=== PATIENT | female | born 1950 | race Caucasian/White ===

== ENCOUNTER → 2023-12-14 14:49 | Outpatient (REF) | payer MEDICARE, BC, SELFPAY | LOC: HWRAD 14:49 | PROVIDERS: ATTENDING PHYSICIAN Physician Assistant Surgical; FAMILY PHYSICIAN Nurse Practitioner Family | DX: M25.512 Pain in left shoulder (principal) | CPT/HCPCS: 73200 ==

== ENCOUNTER 2024-04-08 17:57 | Emergency (ER) | payer MEDICARE, BC, SELFPAY ==
[2024-04-08 17:59] VITALS: BP 144/90
--- NOTE | 2024-04-08 19:26 | ED.MUSCINJ ---
HPI-Injury
General
Chief Complaint: Musculo-Skeletal Complaint
Source: patient, records and spouse
Exam Limitations: none
Time Seen by Provider: 04/08/24 19:12
Nursing documentation reviewed up to this point in time: agreed with
History of Present Illness-Injury
Is this injury a work related problem?: No
Is pt an associate of [facility]/[place]?: No
Initial Injury comments:
73-year-old female left hand pain status post fall 2 days ago cut back her left small finger thinks it broke into her hand, she has had 2 right shoulder surgeries for [place] second by Dr. Martin scheduled to have a left shoulder surgery in the
future, using some tramadol with good pain relief, has some bruising and swelling over her left hand,
Past History
Past History
ED Past Medical History: HTN and Psychiatric (Anxiety/depression)
ED Past Surgical History: Orthopedic and Other (Bilateral breast reduction)
Social History
Tobacco: Non-smoker
Review of Systems
Review of Systems
All Other Systems: Not applicable
Constitutional: Denies fever
Respiratory: Reports no symptoms
Cardiac: Reports no symptoms
ABD/GI: Reports no symptoms
: Reports no symptoms
Musculoskeletal: Reports joint pain
Neurological: Reports no symptoms
Endocrine: Reports no symptoms
Phy Exam
Physical Exam
Physical Exam:
Physical Exam
General: no apparent distress, not acutely ill
Neck: No tongue bite
Lungs: no acute respiratory distress. clear bilaterally
Neuro: alert and oriented. no focal neurological deficits
Skin: no rash
Psychiatric: well kept. interactive and cooperative
Extremities: Mild pain and bruising base of the small finger normal cap refill no pain with range of motion of the left shoulder no tongue bite no posterior neck pain
Injury Course
Orders/Labs/Results
Orders:
Orders
04/08/24 18:02
CR Wrist - Left Min 3 Views Urgent
Comment:
Reason For Exam: injury
04/08/24 18:36
CR Hand - Left Min 3 Views Urgent
Comment:
Reason For Exam: fall, pain
04/08/24 20:13
Tramadol HCl [Ultram] 50 mg PO NOW STA
Procedures
Splint Check
Splint checked by provider?: Yes
Circulation/Movement/Sensation post splint application: brisk cap refill
Splinting/Sling Placement
Left Hand:
Pre-splint extermity exam: neurovascular intact
Type of splint: volar
Splint material: universal
Splint checked by provider?: Yes
Normal distal neurovascular exam?: Yes
MDM/Problems Addressed
Differential Diagnosis Includes:
Fracture contusion dislocation
MDM/Problems Addressed:
Hand injury
Chronic conditions affecting care:
Prior right shoulder surgery
Acute Exacerbation and/or Progression of Chronic Illness:
Prior right shoulder surgery left shoulder arthritis
*Radiology
Radiology exam reviewed: preliminary read by ED provider
*Pulse Oximetry
Patient hypoxic: no
*Critical Care Note
Total Time (30-74mins, 75-104mins- exclusive of procedures): Not Applicable
Update Note
Update Note:
Update x-rays noted question of subtle fracture distal fifth met versus normal will splint for comfort have her follow-up orthopedics
X-ray reviewed with patient formal report pending she request a refill for her tramadol
ED Attending Note
-
Portions of this chart may have been created with voice recognition software.� Occasional wrong word or��sound alike� substitutions may have occurred due to the inherent limitations of voice recognition software.
Discharge Plan
Departure
Patient Disposition: Home (Routine Discharge)
Date of Disposition: 04/08/24
Time of Disposition: 20:01
Patient with high blood pressure during this ER visit?: No
Condition: Good
Covid-19: Not Applicable
Discharge Problem:
Hand injury
Instructions: Contusion
Prescriptions:
New
tramadol 50 mg tablet
50 mg PO Q8H PRN (Reason: Pain) Qty: 10 0RF
No Action
clonazepam [Klonopin] 1 mg Tablet
2 mg PO HS
clonazepam [Klonopin] 1 mg Tablet
1 mg PO PRN PRN (Reason: anxiety)
cholecalciferol (vitamin D3) [Vitamin D3] 50 mcg (2,000 unit) Tablet
50 mcg PO DAILY
meloxicam 15 mg tablet
15 mg PO DAILY Qty: 14 0RF
Rx Instructions:
take with food
post-op
[facility]
1 dose inhalation PRN PRN (Reason: pain and anxiety)
loperamide [Imodium] 2 mg Capsule
2 mg PO Q4H PRN (Reason: diarrhea)
ibuprofen 200 mg Capsule
200 mg PO Q6H PRN (Reason: pain)
valsartan 80 mg Tablet
80 mg PO QPM
doxepin 10 mg Capsule
10 mg PO HS PRN (Reason: anxiety)
raloxifene 60 mg Tablet
60 mg PO DAILY
bisacodyl [Dulcolax (bisacodyl)] 5 mg Tablet,Delayed Release (Dr/Ec)
5 mg PO PRN PRN (Reason: constipation)
propranolol 20 mg Tablet
20 mg PO DAILY
calcium citrate [Citracal] 200 mg (950 mg) Tablet
200 mg PO DAILY
Align 4 mg Capsule
4 mg PO DAILY
dextroamphetamine sulfate 30 mg Tablet
30 mg PO BID
Centrum Adult 50 Plus 80 mcg Tablet,Chewable
1 tab PO DAILY
mupirocin 2 % ointment
1 applic topical BID Qty: 1 0RF
doxycycline hyclate 100 mg capsule
100 mg PO BID Qty: 10 0RF
Rx Instructions:
Take with probiotic
meloxicam 15 mg tablet
15 mg PO DAILY Qty: 14 0RF
Rx Instructions:
take with food
post-op
famotidine 20 mg tablet
20 mg PO HS Qty: 30 0RF
Rx Instructions:
post-op
dexamethasone 4 mg tablet
4 mg PO BID Qty: 6 0RF
Rx Instructions:
take with food
post-op use only
gabapentin 300 mg capsule
300 mg PO HS Qty: 10 0RF
ondansetron 4 mg tablet,disintegrating
4 mg PO Q6H PRN (Reason: n/v) Qty: 20 0RF
Rx Instructions:
take 1/2h b/f pain med if recurrent nausea
allow to dissolve in mouth w/o water
oxycodone 5 mg tablet
5 mg PO Q6H PRN (Reason: 1 tab moderate pain, 2 tabs severe pain) Qty: 30 0RF
Rx Instructions:
Ongoing therapy
Referrals:
Vishal Martin MD [Active] - Next open appointment
Activity Restrictions/Additional Instructions:
Use splint
Follow-up with your orthopedist
Interventions
Interventions:
*Risk Screen - Suicide Last Done: 04/08/24 17:59
*General Assessment Last Done: 04/08/24 17:59
*Neglect/Abuse Screening Last Done: 04/08/24 19:13
*ED COVID-19 Vaccine History Last Done: 04/08/24 19:13
ED-Musculoskeletal Assessment Last Done: 04/08/24 19:13
Discharge Date and Time
Print Language: CITIZEN OF [place]
[2024-04-08] MEDS: ULTRAM 50 MG PO (20:30)
[2024-04-08 20:58] VITALS: BP 138/88
== END 2024-04-08 21:00 | disposition home or self-care (01) ==
LOC: EMR 17:57
PROVIDERS: EMERGENCY PHYSICIAN Emergency Medicine; FAMILY PHYSICIAN Nurse Practitioner Family
DX: S69.92XA Unspecified injury of left wrist, hand and finger(s), initial encounter (principal); S60.222A Contusion of left hand, initial encounter; W19.XXXA Unspecified fall, initial encounter; I10 Essential (primary) hypertension; F41.9 Anxiety disorder, unspecified; F32.A Depression, unspecified; M19.90 Unspecified osteoarthritis, unspecified site; F90.9 Attention-deficit hyperactivity disorder, unspecified type; F43.10 Post-traumatic stress disorder, unspecified; Z87.891 Personal history of nicotine dependence
CPT/HCPCS: 99283; 29125; 73110; 73130

== ENCOUNTER → 2024-04-19 10:43 | Outpatient (REF) | payer MEDICARE, BC, SELFPAY | LOC: RAD 10:43 | PROVIDERS: ATTENDING PHYSICIAN Nurse Practitioner Family | DX: R93.2 Abnormal findings on diagnostic imaging of liver and biliary tract (principal) | CPT/HCPCS: 76700 ==

== ENCOUNTER → 2024-04-26 15:50 | Outpatient (REF) | payer MEDICARE, BC, SELFPAY ==
[2024-04-26 16:20] LABS: % Basophils 1.2 % (0-2); % Eosinophils 5.5 % (0-6); % Immature Granulocytes 0.2 % (0-0.5); % Lymphocytes 25.3 % (20.5-51.1); % Monocytes 9.2 % (1.7-9.3); % Neutrophils 58.6 % (42.2-75.2); Absolute Basophils 0.1 10^3/uL (0-0.2); Absolute Eosinophils 0.2 10^3/uL (0-0.7); Absolute Lymphocytes 1.1 10^3/uL (1.2-3.4); Absolute Monocytes 0.4 10^3/uL (0.1-0.6); Absolute Neutrophils 2.4 10^3/uL (1.4-6.5); Hematocrit 39.4 % (37.0-47.0); Hemoglobin 13.2 g/dL (12.0-16.0); Mean Corp Hgb Conc. 33.5 g/dL (33.0-37.0); Mean Corpuscular Hgb 30.6 pg (27.0-31.0); Mean Corpuscular Volume 91.4 fL (81.0-99.0); Mean Platelet Volume 10.6 fL (7.4-10.4); Nucleated Red Blood Cells % 0 %; Platelet Count 272 10^3/uL (130-400); Red Blood Cell Count 4.31 10^6/uL (4.20-5.40); Red Cell Dist. Width 13.3 % (11.5-14.5); White Blood Cell Count 4.2 10^3/uL (4.8-10.8)
[2024-04-26 16:44] LABS: Blood Urea Nitrogen 11 mg/dl (7-17); Carbon Dioxide 26 mmol/L (22-30); Chloride 101 mmol/L (98-107); Glucose 104 mg/dl (70-99); Potassium 4.9 mmol/L (3.5-5.1); Sodium 144 mmol/L (135-145); eGFR > 60.00
== END ==
LOC: REG 15:50
PROVIDERS: ATTENDING PHYSICIAN Specialist; FAMILY PHYSICIAN Nurse Practitioner Family
DX: Z01.818 Encounter for other preprocedural examination (principal)
CPT/HCPCS: 36415; 80048; 85025

== ENCOUNTER → 2024-05-05 20:19 | Outpatient (REF) | payer MEDICARE, BC, SELFPAY | LOC: MRI 3T 20:19 | PROVIDERS: ATTENDING PHYSICIAN Nurse Practitioner Family | DX: R93.5 Abnormal findings on diagnostic imaging of other abdominal regions, including retroperitoneum (principal) | CPT/HCPCS: 74183; A9575 ==

== ENCOUNTER 2024-05-10 18:14 | Outpatient (RCR) | payer MEDICARE, BC, SELFPAY | END 2024-05-10 23:59 | disposition home or self-care (01) | LOC: ROT 18:14 | PROVIDERS: ATTENDING PHYSICIAN Orthopaedic Surgery Hand Surgery; FAMILY PHYSICIAN Nurse Practitioner Family | DX: M79.645 Pain in left finger(s) (principal) | CPT/HCPCS: 97535; 97760 ==

== ENCOUNTER 2024-06-24 14:01 | Outpatient (RCR) | payer MEDICARE, BC, SELFPAY | END 2024-06-24 23:59 | disposition home or self-care (01) | LOC: RPT 14:01 | PROVIDERS: ATTENDING PHYSICIAN Physician Assistant Surgical; FAMILY PHYSICIAN Nurse Practitioner Family | DX: M19.012 Primary osteoarthritis, left shoulder (principal) | CPT/HCPCS: 97010; 97110; 97140; 97162; 97535 ==

== ENCOUNTER 2024-07-07 13:07 | Outpatient (RCR) | payer MEDICARE, BC, SELFPAY | END 2024-07-07 23:59 | disposition home or self-care (01) | LOC: RPT 13:07 | PROVIDERS: ATTENDING PHYSICIAN Physician Assistant Surgical; FAMILY PHYSICIAN Nurse Practitioner Family | DX: M19.012 Primary osteoarthritis, left shoulder (principal) | CPT/HCPCS: 97010; 97110 ==

== ENCOUNTER 2024-08-23 06:11 | Day surgery (SDC) | payer MEDICARE, BC, SELFPAY ==
[2024-08-23 08:26] VITALS: BP 139/85
[2024-08-23 10:28] VITALS: BP 121/74
[2024-08-23 10:45] VITALS: BP 116/75
== END 2024-08-23 11:10 | disposition home or self-care (01) ==
LOC: SDS 06:11
PROVIDERS: ATTENDING PHYSICIAN Internal Medicine Gastroenterology
PROC: BD47ZZZ Ultrasonography of Gastrointestinal Tract (ICD-10-PCS; 2024-08-23)
PROC: 0DB68ZX Excision of Stomach, Via Natural or Artificial Opening Endoscopic, Diagnostic (ICD-10-PCS; 2024-08-23)
PROC: 0DJD8ZZ Inspection of Lower Intestinal Tract, Via Natural or Artificial Opening Endoscopic (ICD-10-PCS; 2024-08-23)
DX: Z12.11 Encounter for screening for malignant neoplasm of colon (principal); K64.0 First degree hemorrhoids; K57.10 Diverticulosis of small intestine without perforation or abscess without bleeding; K31.89 Other diseases of stomach and duodenum
CPT/HCPCS: 43239; 43237; G0121; 88305; 88342

== ENCOUNTER → 2024-09-07 13:56 | Outpatient (REF) | payer MEDICARE, BC, SELFPAY | LOC: HWRAD 13:56 | PROVIDERS: ATTENDING PHYSICIAN Nurse Practitioner Family | DX: Z78.0 Asymptomatic menopausal state (principal); Z12.31 Encounter for screening mammogram for malignant neoplasm of breast | CPT/HCPCS: 77063; 77067; 77080 ==

== ENCOUNTER → 2024-10-11 10:43 | Outpatient (REF) | payer MEDICARE, BC, SELFPAY | LOC: HWRAD 10:43 | PROVIDERS: ATTENDING PHYSICIAN Physician Assistant Surgical; FAMILY PHYSICIAN Nurse Practitioner Family | DX: M25.511 Pain in right shoulder (principal) | CPT/HCPCS: 73200 ==

== ENCOUNTER → 2024-11-14 09:38 | Outpatient (REF) | payer MEDICARE, BC, SELFPAY ==
[2024-11-14 10:46] LABS: % Basophils 1.7 % (0-2); % Eosinophils 9.2 % (0-6); % Immature Granulocytes 0.2 % (0-0.5); % Lymphocytes 23.1 % (20.5-51.1); % Monocytes 9.7 % (1.7-9.3); % Neutrophils 56.1 % (42.2-75.2); Absolute Basophils 0.1 10^3/uL (0-0.2); Absolute Eosinophils 0.4 10^3/uL (0-0.7); Absolute Monocytes 0.4 10^3/uL (0.1-0.6); Absolute Neutrophils 2.4 10^3/uL (1.4-6.5); Hematocrit 37.8 % (37.0-47.0); Hemoglobin 12.8 g/dL (12.0-16.0); Mean Corp Hgb Conc. 33.9 g/dL (33.0-37.0); Mean Corpuscular Hgb 31.9 pg (27.0-31.0); Mean Corpuscular Volume 94.3 fL (81.0-99.0); Nucleated Red Blood Cells % 0 %; Platelet Count 238 10^3/uL (130-400); Red Blood Cell Count 4.01 10^6/uL (4.20-5.40); Red Cell Dist. Width 15.4 % (11.5-14.5); White Blood Cell Count 4.2 10^3/uL (4.8-10.8)
[2024-11-14 11:01] LABS: Erythrocyte Sed Rate 6 mm/hour (0-20)
[2024-11-14 11:20] LABS: C-Reactive Protein < 5.00 mg/L (0.0-10.00)
== END ==
LOC: REG 09:38
PROVIDERS: ATTENDING PHYSICIAN Physician Assistant Surgical; FAMILY PHYSICIAN Nurse Practitioner Family
DX: M25.511 Pain in right shoulder (principal)
CPT/HCPCS: 36415; 85025; 85652; 86140

== ENCOUNTER 2024-12-27 07:38 | Inpatient (IN) | payer MEDICARE, BC, SELFPAY ==
[2024-12-26 13:21] VITALS: BMI 31.8
--- NOTE | 2024-12-26 14:53 | PTCARENOTE ---
Abn ECG, Septal Infarct (cited on or before 02-Oct-2020)
[2024-12-26 15:02] VITALS: BMI 31.8
[2024-12-27] VITALS (7 sets, daily range): BP systolic 100–132; BP diastolic 54–78; BMI 31.8
[2024-12-27] MEDS: CELEBREX 200 MG PO (07:54)
[2024-12-27] MEDS: TYLENOL 1000 MG PO (07:54)
[2024-12-27] MEDS: NORMOSOL-R/PLASMALYTE-A 1000 IV (08:13)
--- NOTE | 2024-12-27 12:25 | W.PN.UPDATE ---
Update Note
Progress Note Update
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
DVT prophylaxis - ASA, b/l venous foot pumps
HTN - + parameters - monitor BP
Chronic constipation - Add daily Miralax with bowel regimen of Colace and Senna
- Advise adequate hydration, minimization of opioids
CAD, non-obstructive
Diverticulosis
Hemorrhoids
ADHD
Depression/anxiety
Chronic sinusitis
Insomnia
[2024-12-27] MEDS: CYKLOKAPRON 650 MG PO (13:54)
[2024-12-27] MEDS: ANCEF 5 IV (14:24)
== END 2024-12-27 15:30 | disposition home or self-care (01) | DRG 483 ==
LOC: SDS-IP 07:38
PROVIDERS: ADMITTING PHYSICIAN Specialist
PROC: 0RPJ0JZ Removal of Synthetic Substitute from Right Shoulder Joint, Open Approach (ICD-10-PCS; 2024-12-27)
PROC: 0RRJ0JZ Replacement of Right Shoulder Joint with Synthetic Substitute, Open Approach (ICD-10-PCS; 2024-12-27)
DX: T84.038A Mechanical loosening of other internal prosthetic joint, initial encounter (principal); Y79.2 Prosthetic and other implants, materials and accessory orthopedic devices associated with adverse incidents
CPT/HCPCS: 73020; 80053; 83036; 85027; 86850; 86900; 86901; 87070; 87075; 87176; 87205; 93005; C1776